=== PATIENT | male | born 1965 | race Caucasian/White ===

== ENCOUNTER 2017-03-01 08:08 | Inpatient (IN) | payer MEDICAID ==
[~2017-03-01] VITALS: Ht 177.8 cm; Wt 85.8 kg
[2017-03-01 09:32] LABS: Basophils # (auto) 0 uL; Basophils % (auto) 0.2 % (0.0-2.0); Eosinophils # (auto) 0.2 uL; Eosinophils % (auto) 0.8 % (0.0-7.0); Hematocrit 41.9 % (41.0-53.0); Hemoglobin 14.1 g/dL (13.5-17.5); Lymphocytes # (auto) 1.8 uL; Lymphocytes % (auto) 8.7 % (10.0-50.0); Mean Corpuscular Hgb Conc. 33.8 g/dL (32.0-36.0); Mean Corpuscular Volume 100.7 fL (80.0-100.0); Monocytes % (auto) 9.3 % (0.0-12.0); Platelet Count (auto) 236 10^3/uL (140-450); Red Blood Cells 4.16 10^6/uL (4.5-5.90); Red Cell Distribution Width 13.3 % (11.8-14.3)
[2017-03-01 09:50] LABS: Albumin 3.6 g/dL (3.4-5.0); BUN/Creatinine Ratio 12.3; Bilirubin, Total 0.6 mg/dL (0.2-1.0); Calcium 9.2 mg/dL (8.5-10.1); Potassium 3.6 mmol/L (3.5-5.1); Total Protein 7.7 g/dL (6.4-8.2)
[2017-03-01] MEDS ORDERED: metroNIDAZOLE 500MG/100ML 100 ML IV ONE (11:30)
[2017-03-01] MEDS ORDERED: MORPHINE SULFATE 10 MG/ML INJ 1ML SDV IV ONE (11:45)
[2017-03-01] MEDS ORDERED: ONDANSETRON HCL 4 MG/2 ML VIAL IV ONE (11:45)
[2017-03-01] MEDS ORDERED: NICOTINE 21MG/24 HR TOPICAL PATCH TD ONE (12:30)
[2017-03-01] MEDS ORDERED: LEVOFLOXACIN 500MG 100 ML IV ONE (12:30)
[2017-03-01] MEDS ORDERED: PANTOPRAZOLE 40 MG/10 ML VIAL IV ONE (12:45)
[2017-03-01 13:02] LABS: INR 0.98 (0.9-1.15); Partial Thromboplastin Time 25.5 sec (22.64-33.71); Prothrombin Time 10.7 sec (9.37-12.3)
[2017-03-01] MEDS: SODIUM CHLORIDE 0.9% 1,000 ML IV SCH ×2 (13:54→22:46)
[2017-03-01 16:22] VITALS: BP 115/66
[2017-03-01] MEDS: metroNIDAZOLE 500MG/100ML 100 ML IV SCH (17:53)
[2017-03-01] MEDS: MORPHINE SULFATE 10 MG/ML INJ 1ML SDV IV PRN (17:53)
[2017-03-01] MEDS: HYDROcodone-ACET 5/325MG TAB PO PRN (19:44)
[2017-03-01 20:00] VITALS: BP 121/80
[2017-03-01 22:04] VITALS: BP 121/80
[2017-03-01] MEDS: DOCUSATE SOD 100 MG CAP PO SCH (22:09)
[2017-03-02] MEDS: MORPHINE SULFATE 10 MG/ML INJ 1ML SDV IV PRN ×3 (00:13→14:40)
[2017-03-02] MEDS: metroNIDAZOLE 500MG/100ML 100 ML IV SCH ×4 (00:13→17:45)
[2017-03-02] MEDS: HYDROcodone-ACET 5/325MG TAB PO PRN ×3 (05:41→18:19)
[2017-03-02 05:46] VITALS: BP 126/84
[2017-03-02 06:40] LABS: Basophils # (auto) 0 uL; Basophils % (auto) 0.1 % (0.0-2.0); Eosinophils # (auto) 0.2 uL; Eosinophils % (auto) 1.5 % (0.0-7.0); Hematocrit 38.7 % (41.0-53.0); Hemoglobin 12.9 g/dL (13.5-17.5); Lymphocytes # (auto) 1.7 uL; Lymphocytes % (auto) 13.6 % (10.0-50.0); Mean Corpuscular Hgb Conc. 33.4 g/dL (32.0-36.0); Mean Corpuscular Volume 101.8 fL (80.0-100.0); Monocytes % (auto) 7.9 % (0.0-12.0); Neutrophils # (auto) 9.8 uL; Neutrophils % (auto) 76.9 % (37.0-80.0); Nucleated Red Blood Cells % 0.1 %; Platelet Count (auto) 239 10^3/uL (140-450); Red Blood Cells 3.81 10^6/uL (4.5-5.90); Red Cell Distribution Width 13.3 % (11.8-14.3); White Blood Cell 12.8 10^3/uL (4.4-10.8)
[2017-03-02 06:46] LABS: Calcium 8.8 mg/dL (8.5-10.1); Potassium 4.1 mmol/L (3.5-5.1)
[2017-03-02 06:50] LABS: BUN/Creatinine Ratio 12.4
[2017-03-02] MEDS: SODIUM CHLORIDE 0.9% 1,000 ML IV SCH ×2 (08:30→19:20)
[2017-03-02 09:00] VITALS: BP 120/78
[2017-03-02] MEDS ORDERED: PANTOPRAZOLE 40 MG/10 ML VIAL IV SCH (10:00)
[2017-03-02] MEDS ORDERED: NICOTINE 21MG/24 HR TOPICAL PATCH TD SCH (10:00)
[2017-03-02] MEDS: DOCUSATE SOD 100 MG CAP PO SCH (10:00)
[2017-03-02] MEDS ORDERED: LEVOFLOXACIN 500MG 100 ML IV SCH (10:00)
[2017-03-02] MEDS: ONDANSETRON HCL 4 MG/2 ML VIAL IV PRN ×2 (10:34→14:40)
[2017-03-02 13:00] VITALS: BP 121/79
[2017-03-02 17:00] VITALS: BP 114/76
[2017-03-02] MEDS ORDERED: ACETAMINOPHEN 325 MG TAB PO PRN (17:30)
== END 2017-03-02 18:19 | disposition home or self-care (01) | DRG 720 ==
LOC: ER 08:08 → OVERFLOW 08:09 → EAST 14:20 → CENTRAL 14:30
PROVIDERS: ADMIT Internal Medicine; ATTEND Internal Medicine
DX: A41.9 Sepsis, unspecified organism (principal); K57.31 Diverticulosis of large intestine without perforation or abscess with bleeding; I10 Essential (primary) hypertension; K62.89 Other specified diseases of anus and rectum; F12.90 Cannabis use, unspecified, uncomplicated; Z96.653 Presence of artificial knee joint, bilateral; F17.210 Nicotine dependence, cigarettes, uncomplicated; K61.1 Rectal abscess; N20.0 Calculus of kidney; Z82.49 Family history of ischemic heart disease and other diseases of the circulatory system; Z90.49 Acquired absence of other specified parts of digestive tract; Z88.7 Allergy status to serum and vaccine; K62.5 Hemorrhage of anus and rectum
CPT/HCPCS: 36415; 71010; 74176; 80048; 80053; 83605; 83690; 85025; 85610; 85730; 86850; 86900; 86901; 87205; 96365; 96366; 96375; C9113; J1956; J2405; J3490

== ENCOUNTER 2017-08-23 06:54 | Emergency (ER) | payer MEDICAID ==
[~2017-08-23] VITALS: Ht 177.8 cm; Wt 83.9 kg
[2017-08-23 07:15] VITALS: BP 142/87
[2017-08-23] MEDS ORDERED: IPRATROPIUM BROM 0.5 MG/2.5ML INH SOL NEB ONE (08:45)
[2017-08-23] MEDS ORDERED: ALBUTEROL SULF 2.5 MG/0.5ML(0.5%) NEB SOLN NEB ONE (08:45)
== END 2017-08-23 09:58 | disposition home or self-care (01) ==
LOC: ER 06:54
DX: J02.9 Acute pharyngitis, unspecified (principal); I10 Essential (primary) hypertension; F17.210 Nicotine dependence, cigarettes, uncomplicated; Z90.49 Acquired absence of other specified parts of digestive tract; Z90.89 Acquired absence of other organs
CPT/HCPCS: 71046; 94640